=== PATIENT | male | born 1970 | race Caucasian/White ===

== ENCOUNTER 2017-05-07 11:17 | Inpatient (IN) | payer MEDICAID ==
[~2017-05-07] VITALS: Ht 170.2 cm; Wt 64.6 kg
[~2017-05-07 11:17] MED LIST: DIPH50 PO; DIVA500T52 PO; DIVA500T69 PO; NOCURR; OLAN10TA3 PO; OLAN10TA6 PO; PALI234D IM; QUET300T2 PO
[2017-05-07 12:41] VITALS: BP 120/72
[2017-05-07] MEDS ORDERED: OLAN7.5T2 PO (12:49)
[2017-05-07] MEDS ORDERED: ZOLPIDEM TARTRATE 10 MG TABLET PO PRN (13:00)
[2017-05-07 16:00] VITALS: BP 116/71
[2017-05-08] MEDS: LORazepam 2 MG TABLET PO PRN (08:59)
[2017-05-08] MEDS ORDERED: PALIPERIDONE 3 MG ER TABLET PO SCH (09:00)
[2017-05-08 10:13] VITALS: BP 112/68
[2017-05-08 16:00] VITALS: BP 114/70
[2017-05-08] MEDS: PALIPERIDONE 6 MG ER TABLET PO SCH (20:07)
[2017-05-09 06:16] VITALS: BP 108/65
[2017-05-09 08:15] VITALS: BP 112/77
[2017-05-09] MEDS: PALIPERIDONE 6 MG ER TABLET PO SCH ×2 (09:06→21:07)
[2017-05-09] MEDS: LORazepam 2 MG TABLET PO PRN ×2 (09:06→21:07)
[2017-05-10 08:42] VITALS: BP 103/62
[2017-05-10] MEDS: PALIPERIDONE 6 MG ER TABLET PO SCH ×2 (09:29→21:00)
[2017-05-10] MEDS: OLANZapine 5 MG RAPDIS TABLET PO PRN (09:30)
[2017-05-10] MEDS: LORazepam 2 MG TABLET PO PRN (09:30)
[2017-05-10 16:00] VITALS: BP 105/66
[2017-05-11 06:31] VITALS: BP 107/63
[2017-05-11 08:29] VITALS: BP 106/62
[2017-05-11] MEDS: PALIPERIDONE 6 MG ER TABLET PO SCH (09:15)
[2017-05-11] MEDS: LORazepam 2 MG TABLET PO PRN (09:16)
[2017-05-11] MEDS: OLANZapine 5 MG RAPDIS TABLET PO PRN (09:16)
[2017-05-11] MEDS ORDERED: PALIPERIDONE PALMITATE 234 MG/1.5 ML SYRINGE IM ONE (11:30)
[2017-05-11 16:00] VITALS: BP 131/70
[2017-05-11] MEDS ORDERED: PALI6 PO (16:20)
== END 2017-05-11 17:30 | disposition home or self-care (01) | DRG 750 ==
LOC: B3A 13:25
PROVIDERS: ADMIT Psychiatry & Neurology Psychiatry; ATTEND Psychiatry & Neurology Psychiatry
DX: F20.0 Paranoid schizophrenia (principal); Z91.19 Patient's noncompliance with other medical treatment and regimen; E87.6 Hypokalemia; F19.10 Other psychoactive substance abuse, uncomplicated; D64.9 Anemia, unspecified; Z88.1 Allergy status to other antibiotic agents; Z59.0 Homelessness